=== PATIENT | female | born 1940 | race Caucasian/White ===

== ENCOUNTER 2023-11-01 09:58 | Inpatient (IN) ==
--- NOTE | 2023-11-01 10:29 | Emergency Department Note ---
Impression & Plan NSTEMI (non-ST elevated myocardial infarction), LBBB (left bundle branch block), Acute UTI (urinary tract infection), Hypokalemia ED Provider Note NAME: ELANA WU AGE: 83 SEX: F : 1940 ARRIVES VIA: Walk-In INFORMANT: Patient, the patient's family members ED PROVIDER(S): Russel Apple DO CHIEF COMPLAINT: Weakness HPI: The patient is an 83-year-old female who presented to the emergency department for an evaluation of generalized weakness. The patient has been having problems over the course the last week although the family ember states she has been not doing well over the course the last month. The patient denies having any abdominal pain or chest pain at this time. The patient denies having any fevers or coughing. She denies having any diarrhea. She has been having decreased p.o. intake. The patient is not been seen by the family doctor for the symptoms but came to the emergency department today for further evaluation. They have also been noticing that her blood pressure has been low and her blood sugars been high. ROS: See above HPI for pertinent positives & negatives. A total of 10 systems reviewed and were otherwise negative. PAST MEDICAL HISTORY: See Below PAST SURGICAL HISTORY: See Below FAMILY HISTORY: See Below SOCIAL HISTORY: See Below HOME MEDICATIONS: See Below ALLERGIES: See Below VITALS: See Below PHYSICAL EXAMINATION: GENERAL: Patient is awake alert in no acute distress patient is resting comfortably and showing no signs of anxiety EYES: The conjunctivae are clear. The pupils are round and reactive. EARS, NOSE, MOUTH AND THROAT: The nose is without any evidence of any deformity. Mucous membranes are dry. NECK: The neck is nontender and supple. RESPIRATORY: Normal respiratory effort is noted there is no evidence of wheezing rhonchi or rales CARDIOVASCULAR: Regular rate and rhythm noted there no murmurs rubs or gallops normal S1 normal S2. GASTROINTESTINAL: The abdomen is soft. Abdomen is nontender. MUSCULOSKELETAL/EXTREMITIES: There is no evidence of gross deformity full range of motion is noted in the hips and shoulders. SKIN: There is no obvious evidence of any rash. There are no petechiae, pallor or cyanosis noted. NEUROLOGIC: Patient is awake alert and oriented x3. Strength was diminished but symmetric. MEDICAL DECISION MAKING: The patient is an 83-year-old female who presented to the emergency department for an evaluation of multiple complaints. The patient presented with family members for being very tired. They thought the patient's blood pressure was low and her blood sugar was been high. She started having chest pain over the course the last week. The patient had no ongoing chest pain at this time. I discussed patient's laboratory and radiographic studies with her and her family members. She was found to have a new left bundle compared to her previous EKG that we had on file from 2016. She was also found to have an elevation in her troponin. I discussed her condition with the on-call [facility] hospitalist. I also discussed her condition with the [facility] side laster tack. The patient was started on heparin. She was treated with aspirin. Triage Nursing notes reviewed. Prior medical records reviewed Vital Signs: reviewed and remarkable for elevated blood pressure. Differential diagnosis: Infection, dehydration, metabolic abnormality, hypo/hyperglycemia, electrolyte disturbance, anemia, hypoxia, cardiac sources, intracerebral event, toxicologic, neurologic, as well as other pathologies. ER treatment provided: See below Diagnostics interpreted by me: ECG: EKG was obtained in the emergency department. My interpretation is normal sinus rhythm at 74 bpm. Left bundle branch block pattern was noted. There is no PVCs. This was compared to a tracing from October 02, 2015. The left bundle is new compared to previous tracing. Cardiac Monitoring: An order was placed for continuous cardiac monitoring. The monitor shows a rate of 71 bpm with sinus rhythm. Laboratory studies: As stated above and show below. Imaging studies: See below. Radiographic imaging was reviewed by myself Consultation(s): I discussed this case with Terri who is on-call for the [facility] hospitalist group. I discussed this case with Dr. Diggs who is on-call for the [facility]ist group. ED COURSE: Procedures: none Critical Care: I have personally spent greater than 40 minutes of critical care time in the direct management of this patient. This includes bedside care, interpretation of diagnostic studies, and testing, discussion with consultants, patient, and family members, and other required patient management activities. This 40 minutes is in excess of all separately billable procedures. Past Med/Surg History Medical History HLD (hyperlipidemia) HTN (hypertension) DM (diabetes mellitus), type 2 Chronic renal failure, stage 3 (moderate) Surgical History Hx of cataract surgery Total knee replacement status H/O: hysterectomy Family History Other Diabetes Social History Smoking Status: Never smoker Second Hand Exposure: No; Do You Dip or Chew Tobacco: No; Tobacco Cessation Education Requested by Patient: No Hx Alcohol Use: No Hx Substance Use: No Preferred Language: Cantonese Tongan Communication Ability: Effective [employer] V[employer] Inspector Required: No Beliefs That Will Affect Care: None Current Living Situation: Spouse Other Information That Helps Us Care for You: No Feels Safe at Home: Yes Safety Concerns: Feels Safe At This Time Assistive Devices: Cane Allergies Allergies Allergy/AdvReac Type Severity Reaction Status Date / Time Penicillins Allergy Severe RASH OVER Verified 11/01/23 12:47 ENTIRE BODY Home Meds Home Medications Medication Instructions Recorded Confirmed amlodipine 10 mg tablet 10 mg PO DAILY 11/01/23 11/01/23 atorvastatin 20 mg tablet 40 mg PO DAILY 11/01/23 11/01/23 calcitriol 0.25 mcg capsule 0.25 mcg PO Q OTHER DAY 11/01/23 11/01/23 calcium carbonate 600 mg calcium 600 mg PO DAILY 11/01/23 11/01/23 (1,500 mg) tablet (Calcium) cholecalciferol (vitamin D3) 50 50 mcg PO DAILY 11/01/23 11/01/23 mcg (2,000 unit) tablet (Vitamin D3) docusate sodium 100 mg capsule 100 mg PO DAILY 11/01/23 11/01/23 (Colace) glipizide 10 mg tablet, extended 10 mg PO DAILY 11/01/23 11/01/23 release 24 hr hydrochlorothiazide 12.5 mg capsule 12.5 mg PO DAILY 11/01/23 11/01/23 levothyroxine 50 mcg tablet 50 mcg PO DAILY 11/01/23 11/01/23 (Euthyrox) losartan 100 mg tablet 100 mg PO DAILY 11/01/23 11/01/23 potassium chloride 20 mEq 20 meq PO DAILY 11/01/23 11/01/23 tablet,extended release Results & Data (ED) Vital Signs Vital Signs - 24 hr 11/01/23 10:01 11/01/23 11:10 11/01/23 11:22 Temperature 35.9 C L Temperature Source Temporal Artery Scan Pulse Rate 88 80 74 Pulse Rate from SpO2 Sensor Respiratory Rate 16 20 17 Respiratory Effort / Characteristics Non-Labored Spontaneous Respiratory Depth Normal Blood Pressure 137/75 142/69 H 138/68 Blood Pressure Mean 95 93 91 Pulse Oximetry 97 98 98 Oxygen Delivery Method Room Air Room Air Room Air Sepsis Recent Fever Within 48 Hours No Sepsis New/Unexplained Change in Mental Status No Sepsis Action Taken by Nursing No Action Required 11/01/23 11:30 11/01/23 12:00 11/01/23 12:21 Temperature Temperature Source Pulse Rate 65 74 68 Pulse Rate from SpO2 Sensor 75 Respiratory Rate 19 16 Respiratory Effort / Characteristics Respiratory Depth Blood Pressure 137/68 164/85 H Blood Pressure Mean 91 111 Pulse Oximetry 98 97 Oxygen Delivery Method Room Air Room Air Sepsis Recent Fever Within 48 Hours Sepsis New/Unexplained Change in Mental Status Sepsis Action Taken by Alf Medications Current Medication List: was personally reviewed by me Laboratory Data Attestation: I reviewed the patient's lab results. 11/01/23 10:25 11/01/23 10:25 Lab Results 11/01/23 11/01/23 11/01/23 Range/Units 10:16 10:25 11:14 WBC 13.57 H (4.8-10.8) K/ul RBC 4.69 (4.20-5.40) M/uL Hgb 12.8 (12.0-16.0) g/dl Hct 38.9 (37.0-47.0) % MCV 82.9 (80.0-100.0) fL MCH 27.3 (25.0-34.0) pg MCHC 32.9 (32.0-36.0) g/dL RDW Std Deviation 43.4 (36.4-46.3) fL RDW Coeff of Maria Del Rosario 14.4 (11.5-14.5) % Plt Count 236 (130-400) K/uL MPV 12.7 H (9.4-12.4) fL Immature Gran % (Auto) 0.4 % Neut % (Auto) 75.5 % Lymph % (Auto) 14.0 % Norton % (Auto) 9.4 % Eos % (Auto) 0.4 % Baso % (Auto) 0.3 % Neut # (Auto) 10.25 H (1.40-6.50) K/uL Lymph # (Auto) 1.90 (1.20-3.40) K/uL Norton # (Auto) 1.27 H (0.11-0.59) K/uL Eos # (Auto) 0.06 (0.00-0.50) K/uL Baso # (Auto) 0.04 (0.00-0.20) K/uL Immature Gran # (Auto) 0.05 (0.01-0.20) K/uL PT 11.0 (9.0-12.0) Seconds INR 1.0 (0.9-1.1) APTT 27 (21-31) Seconds PTT Ratio 1.0 Sodium 134 L (136-145) mmol/L Potassium 3.0 L (3.5-5.1) mmol/L Chloride 98 (98-107) mmol/L Carbon Dioxide 27 (21-32) mmol/L Anion Gap 9 (3-11) BUN 31 H (6-23) mg/dl Creatinine 1.72 H (0.6-1.2) mg/dl Est Cr Clr Drug Dosing Not Reportable Est GFR ( Amer) 31.1 ml/min Est GFR (Non-Af Amer) 26.8 ml/min BUN/Creatinine Ratio 18.0 (10-20) Glucose 177 H (70-99(Fasting)) mg/dl POC Glucose 176 H (70-99) mg/dl Calcium 9.3 (8.6-10.3) mg/dl Magnesium 2.1 (1.7-2.4) mg/dl Total Bilirubin 1.1 H (0.2-1.0) mg/dl AST 34 (13-39) U/L ALT 16 (7-52) U/L Alkaline Phosphatase 49 (34-104) U/L Total Creatine Kinase 110 (26-192) U/L Troponin I High Sens 7459.0 H* (0-14) pg/ml Total Protein 6.7 (6.0-8.3) gm/dl Albumin 3.6 (3.4-5.0) gm/dl Globulin 3.1 (2.5-4.0) gm/dl Albumin/Globulin Ratio 1.2 (0.9-2) TSH 1.852 (0.300-4.500) uIu/ml Urine Color Urine Appearance (Clear) Urine pH (4.5-7.5) Ur Specific [place] (1.000-1.030) Urine Protein (Negative) Urine Glucose (UA) (Negative) Urine Ketones (Negative) Urine Blood (Negative) Urine Nitrite (Negative) Urine Bilirubin (Negative) Urine Urobilinogen (Negative) Ur Leukocyte Esterase (Negative) Urine WBC (Auto) (0-5) /hpf Urine RBC (Auto) (0-4) /hpf U Hyaline Cast (Auto) (0-5) /lpf U Epithel Cells (Auto) (0-5) /lpf Urine Bacteria (Auto) (Negative) SARS-CoV-2 (PCR) NEGATIVE (Negative) Influenza Type A (PCR) Negative (Neg) Influenza Type B (PCR) Negative (Neg) RSV (RT-PCR) Negative (Neg) 11/01/23 Range/Units 11:23 WBC (4.8-10.8) K/ul RBC (4.20-5.40) M/uL Hgb (12.0-16.0) g/dl Hct (37.0-47.0) % MCV (80.0-100.0) fL MCH (25.0-34.0) pg MCHC (32.0-36.0) g/dL RDW Std Deviation (36.4-46.3) fL RDW Coeff of Maria Del Rosario (11.5-14.5) % Plt Count (130-400) K/uL MPV (9.4-12.4) fL Immature Gran % (Auto) % Neut % (Auto) % Lymph % (Auto) % Norton % (Auto) % Eos % (Auto) % Baso % (Auto) % Neut # (Auto) (1.40-6.50) K/uL Lymph # (Auto) (1.20-3.40) K/uL Norton # (Auto) (0.11-0.59) K/uL Eos # (Auto) (0.00-0.50) K/uL Baso # (Auto) (0.00-0.20) K/uL Immature Gran # (Auto) (0.01-0.20) K/uL PT (9.0-12.0) Seconds INR (0.9-1.1) APTT (21-31) Seconds PTT Ratio Sodium (136-145) mmol/L Potassium (3.5-5.1) mmol/L Chloride (98-107) mmol/L Carbon Dioxide (21-32) mmol/L Anion Gap (3-11) BUN (6-23) mg/dl Creatinine (0.6-1.2) mg/dl Est Cr Clr Drug Dosing Est GFR ( Amer) ml/min Est GFR (Non-Af Amer) ml/min BUN/Creatinine Ratio (10-20) Glucose (70-99(Fasting)) mg/dl POC Glucose (70-99) mg/dl Calcium (8.6-10.3) mg/dl Magnesium (1.7-2.4) mg/dl Total Bilirubin (0.2-1.0) mg/dl AST (13-39) U/L ALT (7-52) U/L Alkaline Phosphatase (34-104) U/L Total Creatine Kinase (26-192) U/L Troponin I High Sens (0-14) pg/ml Total Protein (6.0-8.3) gm/dl Albumin (3.4-5.0) gm/dl Globulin (2.5-4.0) gm/dl Albumin/Globulin Ratio (0.9-2) TSH (0.300-4.500) uIu/ml Urine Color Yellow Urine Appearance Turbid A (Clear) Urine pH 5.5 (4.5-7.5) Ur Specific [place] 1.007 (1.000-1.030) Urine Protein Negative (Negative) Urine Glucose (UA) Negative (Negative) Urine Ketones Negative (Negative) Urine Blood Trace H (Negative) Urine Nitrite Positive A (Negative) Urine Bilirubin Negative (Negative) Urine Urobilinogen Negative (Negative) Ur Leukocyte Esterase 3+ H (Negative) Urine WBC (Auto) >30 H (0-5) /hpf Urine RBC (Auto) 0-4 (0-4) /hpf U Hyaline Cast (Auto) 1-5 (0-5) /lpf U Epithel Cells (Auto) >30 H (0-5) /lpf Urine Bacteria (Auto) 4+ H (Negative) SARS-CoV-2 (PCR) (Negative) Influenza Type A (PCR) (Neg) Influenza Type B (PCR) (Neg) RSV (RT-PCR) (Neg) Administered Medications Heparin Sodium/Dextrose (Heparin Sodium/Dextrose) 25,000 units in 500 mls @ 15 mls/hr IV .Q24H [facility]; Protocol Stop: 12/01/23 11:44 Last Admin: 11/01/23 11:58 Dose: 750 units/hr, 15 mls/hr Documented By: SANTHOSH Co-signed By: ALVARADO Discontinued Medications Aspirin (Aspirin Chew 324 Mg) 324 mg PO NOW STA Stop: 11/01/23 11:41 Last Admin: 11/01/23 11:55 Dose: 324 mg Documented By: SANTHOSH Fentanyl Citrate (Fentanyl Citrate Pf 100 Mcg/2 Ml Vial) Confirm Administered Dose 100 mcg .ROUTE .STK-MED ONE Stop: 11/01/23 15:22 Last Increment: 11/01/23 16:22 Dose: 25 mcg Documented By: MICHEAL Heparin Sodium (Porcine) (Heparin Sod (Porcine) 1000 Unit/Ml) 4,000 units IV NOW ONE Stop: 11/01/23 12:01 Last Admin: 11/01/23 11:58 Dose: 4,000 units Documented By: SANTHOSH Co-signed By: ALVARADO Heparin Sodium (Porcine) (Heparin (Porcine) 1000 Unit/Ml 10 Ml ([facility] Liaison Use Only)) Confirm Administered Dose 10,000 units .ROUTE .STK-MED ONE Stop: 11/01/23 15:22 Last Admin: 11/01/23 16:22 Dose: Not Given Documented By: MICHEAL Heparin Sodium/Sodium Chloride (Heparin In Nss Infusion 1000 Unit/500 Ml (2 U/Ml) Bag) Confirm Administered Dose 3,000 units IV .STK-MED ONE Stop: 11/01/23 15:22 Last Admin: 11/01/23 16:22 Dose: 3,000 units Documented By: MARGE Potassium Chloride (K Nick / Wtr) 10 meq in 100 mls @ 100 mls/hr IV ONE ONE Stop: 11/01/23 12:27 Last Infusion: 11/01/23 13:19 Dose: Infused Documented By: Admin: 11/01/23 11:56 Dose: 100 mls/hr Documented By: SANTHOSH Ceftriaxone Sodium 2,000 mg/ (Dextrose) 50 mls @ 100 mls/hr IV NOW STA; Protocol Stop: 11/01/23 13:00 Last Infusion: 11/01/23 13:38 Dose: Infused Documented By: Admin: 11/01/23 13:05 Dose: 100 mls/hr Documented By: ALVARADO Midazolam HCl (Midazolam Hcl 1 Mg/Ml 2ml Vial) Confirm Administered Dose 2 mg .ROUTE .STK-MED ONE Stop: 11/01/23 15:22 Last Increment: 11/01/23 16:22 Dose: 1 mg Documented By: MICHEAL Nicardipine HCl (Nicardipine Hcl Inj 2.5 Mg/Ml 10 Ml Amp) Confirm Administered Dose 25 mg .ROUTE .STK-MED ONE Stop: 11/01/23 15:22 Last Admin: 11/01/23 16:23 Dose: 0.1 mg Documented By: MARGE Nitroglycerin/Dextrose (Nitroglycerin/D5w 100mcg/Ml 20ml Syr) Confirm Administered Dose 2,000 mcg .ROUTE .STK-MED ONE Stop: 11/01/23 15:24 Last Admin: 11/01/23 16:23 Dose: 100 mcg Documented By: MARGE Potassium Chloride (Potassium Chloride Crtab 20 Meq Tabcr) 20 meq PO NOW STA Stop: 11/01/23 11:29 Last Admin: 11/01/23 11:56 Dose: 20 meq Documented By: SANTHOSH Imaging Data Attestation: I personally reviewed and interpreted this imaging study as follows: My Impression: 1 view chest x-ray was obtained in the emergency department. My interpretation is no free air or definite infiltrate, final report below. CT of the brain was obtained in the emergency department. My interpretation is no intracranial hemorrhage or mass effect, final report below Radiologist's Impression: Chest X-Ray 11/01/23 10:31 XR chest 1V portable HISTORY: weakness COMPARISON: Chest 10/02/2015. FINDINGS: No pneumothorax. No pleural effusions. The cardiac silhouette and mainstem normal in size. Calcifications again noted within the thoracic aorta. The lungs are clear. No evidence for pulmonary edema. No acute fractures identified. IMPRESSION: No acute process. ACT 112: Negative or not required by law. Electronically signed by: Juan M Gillis M.D. 11/01/2023 10:[address] 11/01/23 10:31 CT head/brain wo con CLINICAL HISTORY: ams Technique: Contiguous axial CT images of the head were acquired from the base of the skull to the vertex without intravenous contrast administration. Images were viewed in brain, subdural and bone windows. Automated dose lowering techniques and/or adjustment according to patient size were utilized for this exam. Comparison: None available at the time of this dictation. Findings: Areas of decreased attenuation are present in the periventricular and subcortical white matter bilaterally consistent with small vessel ischemic disease. Generalized cerebral atrophy with commensurate enlargement of the ventricles, sulci, and cisterns is also present. There is no acute intracranial hemorrhage or evidence of acute territorial infarction. No shift of the midline structures, mass effect, or extra-axial abnormalities are shown. Atherosclerotic calcifications are present in the intracranial segments of the internal carotid arteries. Imaged portions of the paranasal sinuses and mastoid air cells are clear. The orbits appear normal. There are no acute fractures of the calvaria or scalp swelling. Impression: No acute intracranial hemorrhage, no evidence of acute territorial infarction or other acute intracranial disease process. ACT 112: Negative or not required by law. Electronically signed by: Bebo Mccann M.D. 11/01/2023 11:16 AM Discharge Plan Visit Data Chief Complaint: Hypotension Stated Complaint: LOW BLOOD PRESSURE/SUGAR HIGH - DIABETIC ED Provider: Russel Apple Discharge Problem: NSTEMI (non-ST elevated myocardial infarction), LBBB (left bundle branch block), Acute UTI (urinary tract infection), Hypokalemia Patient Disposition: Admitted As Inpatient Discharge Instructions Interventions: ED Discharge Assessment Last Done: 11/01/23 13:57
--- NOTE | 2023-11-01 10:48 | XRay Report ---
XR chest 1V portable HISTORY: weakness COMPARISON: Chest 10/02/2015. FINDINGS: No pneumothorax. No pleural effusions. The cardiac silhouette and mainstem normal in size. Calcifications again noted within the thoracic aorta. The lungs are clear. No evidence for pulmonary edema. No acute fractures identified. IMPRESSION: No acute process. ACT 112: Negative or not required by law. Electronically signed by: Juan M Gillis M.D. 11/01/2023 10:47 AM
[2023-11-01 10:57] LABS: Basophils # (auto) 0.04 K/uL (0.00-0.20); Basophils % (auto) 0.3 %; Eosinophils # (auto) 0.06 K/uL (0.00-0.50); Eosinophils % (auto) 0.4 %; Hematocrit (blood only) 38.9 % (37.0-47.0); Hemoglobin 12.8 g/dl (12.0-16.0); Immature Granulocytes # (auto) 0.05 K/uL (0.01-0.20); Immature Granulocytes % (auto) 0.4 %; Mean Corpuscular Hemoglobin 27.3 pg (25.0-34.0); Mean Corpuscular Hgb Conc 32.9 g/dL (32.0-36.0); Mean Corpuscular Volume 82.9 fL (80.0-100.0); Mean Platelet Volume 12.7 fL (9.4-12.4); Monocytes # (auto) 1.27 K/uL (0.11-0.59); Monocytes % (auto) 9.4 %; Neutrophils # (auto) 10.25 K/uL (1.40-6.50); Neutrophils % (auto) 75.5 %; Platelet Count 236 K/uL (130-400); RDW Coefficient of Variation 14.4 % (11.5-14.5); RDW Standard Deviation 43.4 fL (36.4-46.3); Red Blood Count 4.69 M/uL (4.20-5.40); White Blood Count 13.57 K/ul (4.8-10.8)
[2023-11-01 11:13] LABS: Alanine Aminotransferase 16 U/L (7-52); Albumin Globulin Ratio 1.2 (0.9-2); Albumin Level 3.6 gm/dl (3.4-5.0); Alkaline Phosphatase 49 U/L (34-104); Anion Gap 9 (3-11); Aspartate Aminotransferase 34 U/L (13-39); Bilirubin,Total 1.1 mg/dl (0.2-1.0); Blood Urea Nitrogen 31 mg/dl (6-23); Calcium 9.3 mg/dl (8.6-10.3); Carbon Dioxide 27 mmol/L (21-32); Chloride 98 mmol/L (98-107); Creatine Kinase 110 U/L (26-192); Est GFR (African American) 31.1 ml/min; Est GFR (Non-African American) 26.8 ml/min; Globulin 3.1 gm/dl (2.5-4.0); Glucose 177 mg/dl (70-99(Fasting)); Magnesium 2.1 mg/dl (1.7-2.4); Sodium 134 mmol/L (136-145); Total Protein 6.7 gm/dl (6.0-8.3)
--- NOTE | 2023-11-01 11:17 | CT Scan Report ---
CT head/brain wo con CLINICAL HISTORY: ams Technique: Contiguous axial CT images of the head were acquired from the base of the skull to the romero miranda without intravenous contrast administration. Images were viewed in brain, subdural and bone [facility]. Automated dose lowering techniques and/or adjustment according to patient size were utilized for this exam. Comparison: None available at the time of this dictation. Findings: Areas of decreased attenuation are present in the periventricular and subcortical white matter bilate rally consistent with small vessel ischemic disease. Generalized cerebral atrophy with commensurate e nlargement of the ventricles, sulci, and cisterns is also present. There is no acute intracranial hem orrhage or evidence of acute territorial infarction. No shift of the midline structures, mass effect, or extra-axial abnormalities are shown. Atherosclerotic calcifications are present in the intracran ial segments of the internal carotid arteries. Imaged portions of the paranasal sinuses and mastoid air cells are clear. The orbits appear normal. There are no acute fractures of the calvaria or scalp swelling. Impression: No acute intracranial hemorrhage, no evidence of acute territorial infarction or other acute intracra nial disease process. ACT 112: Negative or not required by law. Electronically signed by: Bebo Mccann M.D. 11/01/2023 11:16 AM
[2023-11-01 11:28] LABS: Thyroid Stimulating Hormone 1.852 uIu/ml (0.300-4.500)
[2023-11-01 11:29] LABS: Partial Thromboplastin Time 27 Seconds (21-31)
[2023-11-01] MEDS ORDERED: Heparin IV Adult Wt-Based Low-Dose w/ INITIAL Bolus Protocol IV STA (11:30)
[2023-11-01] MEDS ORDERED: Patient's HEIGHT &/or WEIGHT Needed STA (11:31)
[2023-11-01] MEDS ORDERED: HEPARIN SOD (PORCINE) 1000 UNIT/ML IV ONE (11:45)
[2023-11-01 11:48] LABS: Appearance Urine Turbid (Clear); Bacteria Urine Automated 4+ (Negative); Bilirubin Urine Negative (Negative); Blood Urine Trace (Negative); Color Urine Yellow; Epithelial Cell Urine Auto >30 /lpf (0-5); Glucose Urine UA Negative (Negative); Ketones Urine Negative (Negative); Leukocyte Esterase Urine 3+ (Negative); Nitrite Urine Positive (Negative); Protein Urine Negative (Negative); RBC Urine Automated 0-4 /hpf (0-4); Specific Gravity Urine 1.007 (1.000-1.030); Urobilinogen Urine Negative (Negative); WBC Urine Automated >30 /hpf (0-5); pH Urine 5.5 (4.5-7.5)
[2023-11-01] MEDS: ASPIRIN CHEW 324 MG PO STA (11:55)
[2023-11-01] MEDS: POTASSIUM CHLORIDE / WTR 10 MEQ/100 ML PLCT IV ONE (11:56)
[2023-11-01] MEDS: POTASSIUM CHLORIDE CRTAB 20 MEQ TABCR PO STA (11:56)
--- NOTE | 2023-11-01 11:56 | Electrocardiogram Report ---
Test Reason : Blood Pressure : / mmHG Vent. Rate : 074 BPM Atrial Rate : 074 BPM P-R Int : 150 ms QRS Dur : 164 ms QT Int : 408 ms P-R-T Axes : -14 -30 121 degrees QTc Int : 452 ms Normal sinus rhythm Left axis deviation Left bundle branch block Abnormal ECG When compared with ECG of 02-OCT-2015 08:45, Left bundle branch block is now Present Confirmed by Russel Virk ([id number]) on 11/01/2023 11:56:25 AM Referred By: Confirmed By:Russel Virk
[2023-11-01] MEDS: HEPARIN SODIUM/DEXTROSE 25,000 UNITS/500 ML BAG IV SCH (11:58)
[2023-11-01] MEDS: HEPARIN SOD (PORCINE) 1000 UNIT/ML IV ONE ×2 (11:58→19:44)
[2023-11-01 12:16] LABS: Influenza A virus by PCR Negative (Neg); Influenza B virus by PCR Negative (Neg); RSV by PCR Negative (Neg); SARS CoV2 RNA(COVID-19) Ceph NEGATIVE (Negative)
--- NOTE | 2023-11-01 12:25 | History & Physical Report ---
Date of Service November 01, 2023 Assessment & Plan (1) LBBB (left bundle branch block): (2) NSTEMI (non-ST elevated myocardial infarction): (3) Generalized weakness: (4) HTN (hypertension): (5) DM (diabetes mellitus), type 2: (6) Chronic renal failure, stage 3 (moderate): (7) HLD (hyperlipidemia): Plan This is an 83-year-old female with PMH of HTN, DM II, CKD III, HLD and other medical problems listed below who presents with generalized weakness and unintentional weight loss over the past month and was found to have NSTEMI. LBBB NSTEMI Presenting with hypotension and generalized weakness x 1 mo, had R sided chest pain with walking on Sunday, has not recurred No known h/o CAD EKG reviewed - NSS, LAD, LBBB (new since 2015) HS troponin 7,459 -> 10,486 Started in IV heparin Discussed with Dr. Diggs who ordered stat echo, will evaluate Keep NPO for now, monitor on tele, trend troponin, repeat EKG in AM Acute uncomplicated UTI Endorses generalized weakness and decreased appetite but no urinary symptoms UA grossly abnormal, starting empiric Rocephin Allergy to PCN (reaction - rash) noted, discussed with pharmacy and due to low risk for cross-reactivity and SCOTTY limiting abx options, will continue Rocephin for now Monitor closely HTN Has been hypotensive lately, held her amlodipine and losartan for the past few days DM II A1c unknown - add to labs Hold home agents SSI while in-patient BSG AC HS CKD III Cr 1.72 (baseline unknown; will request outside records). 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 Castro. Please see addendum. I spent a total of 75 minutes coordinating, documenting, and providing care for this patient excluding time spent in the performance of separately billed services. History of Present Illness Chief Complaint: Generalized weakness, poor appetite Primary Care Provider: Zeke Franklin This is an 83-year-old female with PMH of HTN, DM II, CKD III, HLD and other medical problems listed below who presents with generalized weakness and unintentional weight loss over the past month. at bedside states that patient has lost approximately 25 pounds over the past month and is just generally not hungry. Patient is a poor historian so majority of history was obtained by family at bedside. Was seen by Dr. Franklin's PA-C 2 weeks ago and blood pressure had been elevated, so losartan dose was increased to 100 mg. Took for the first time this past Sunday before going to shinto. States she developed right-sided chest pain when walking out of the shinto that was nonradiating and resolved within the hour when she was able to rest at home. Chest pain has not recurred since then. Over the past few days, has noted her systolic blood pressure to be lower in the 1 teens, and has been holding blood pressure medications. This morning, patient is unclear whether or not she took her meds but her systolic blood pressure was in the 80s and brought her in for further evaluation. Over the past 2 weeks in particular, patient has felt generally weak with decreased appetite. Had a fall earlier today ambulating back from the restroom but denies losing consciousness or head trauma, landed on her backside. Denies any personal known history of CAD or cardiac catheterization. Thinks it has been years since she had an EKG. Does not follow with a flight software test engineer. Remembers being told years ago that she has " aneurysms" but is not sure where they are located and we cannot view her outside records at this time. Patient is a non-smoker. No family history of heart disease. Denies any fever, chills, lightness, visual changes, chest pain, palpitations, shortness of breath, nausea, vomiting, abdominal pain, dysuria, diarrhea or constipation. Allergies Allergy/AdvReac Type Severity Reaction Status Date / Time Penicillins Allergy Severe RASH OVER Verified 11/01/23 12:47 ENTIRE BODY Home Medications Medication Instructions Recorded Confirmed Type amlodipine 10 mg tablet 10 mg PO DAILY 11/01/23 11/01/23 History atorvastatin 20 mg tablet 40 mg PO DAILY 11/01/23 11/01/23 History calcitriol 0.25 mcg capsule 0.25 mcg PO Q OTHER DAY 11/01/23 11/01/23 History calcium carbonate 600 mg calcium 600 mg PO DAILY 11/01/23 11/01/23 History (1,500 mg) tablet (Calcium) cholecalciferol (vitamin D3) 50 50 mcg PO DAILY 11/01/23 11/01/23 History mcg (2,000 unit) tablet (Vitamin D3) docusate sodium 100 mg capsule 100 mg PO DAILY 11/01/23 11/01/23 History (Colace) glipizide 10 mg tablet, extended 10 mg PO DAILY 11/01/23 11/01/23 History release 24 hr hydrochlorothiazide 12.5 mg capsule 12.5 mg PO DAILY 11/01/23 11/01/23 History levothyroxine 50 mcg tablet 50 mcg PO DAILY 11/01/23 11/01/23 History (Euthyrox) losartan 100 mg tablet 100 mg PO DAILY 11/01/23 11/01/23 History potassium chloride 20 mEq 20 meq PO DAILY 11/01/23 11/01/23 History tablet,extended release Past Med/Surg History Medical History HLD (hyperlipidemia) HTN (hypertension) DM (diabetes mellitus), type 2 Chronic renal failure, stage 3 (moderate) Surgical History Hx of cataract surgery Total knee replacement status H/O: hysterectomy Family History Other Diabetes Social History Smoking Status: Never smoker Second Hand Exposure: No; Do You Dip or Chew Tobacco: No; Tobacco Cessation Education Requested by Patient: No Hx Alcohol Use: No Hx Substance Use: No Preferred Language: Cantonese Icelandic Communication Ability: Effective Edge Bander Operator Required: No Beliefs That Will Affect Care: None Current Living Situation: Spouse Other Information That Helps Us Care for You: No Feels Safe at Home: Yes Safety Concerns: Feels Safe At This Time Assistive Devices: Cane Review of Systems Review of Systems: At least ten systems reviewed and negative except as noted in the HPI. Physical Exam Physical Exam: General Appearance: WD/WN, vitals as above, NAD, sitting up in bed Head: normocephalic, atraumatic Eyes: normal inspection, PERRL, conjunctivae normal, anicteric sclerae ENT: external ear and nose normal, oropharynx normal Neck: normal visual inspection, trachea midline, no thyromegaly Respiratory: normal respiratory effort, lungs clear to auscultation, no wheeze, rales, rhonchi. No accessory muscle use Cardiovascular: regular rate, rhythm, no murmur, normal peripheral pulses, no BLE edema. Vessels: no JVD Chest: normal inspection of chest Abdomen/GI: normal bowel sounds, soft, nontender, no hepatosplenomegaly Extremities/Musculoskeletal: no cyanosis or clubbing, extremities motor strength 5/5 Neurologic: PERRL, EOMI, accommodation nl, no face palsy, no dysarthria, CN's II-XI intact bilaterally and moves all extremities Psychiatric: A+Ox3, euthymic affect Skin: no rashes, normal color, warm/dry Results & Data Results & Data Vital Signs (Past 12 Hours) Vital Signs Temp Pulse Resp BP Pulse Ox O2 Del Method 11/01/23 10:01 35.9 C L 88 16 137/75 97 Room Air Laboratory Results Short CBC 11/01/23 Range/Units 10:25 WBC 13.57 H (4.8-10.8) K/ul Hgb 12.8 (12.0-16.0) g/dl Hct 38.9 (37.0-47.0) % Plt Count 236 (130-400) K/uL BMP 11/01/23 10:25 Sodium 134 L Potassium 3.0 L Chloride 98 Carbon Dioxide 27 BUN 31 H Creatinine 1.72 H Glucose 177 H Calcium 9.3 Cardiac Enzymes 11/01/23 Range/Units 10:25 Total Creatine Kinase 110 (26-192) U/L Liver Function 11/01/23 Range/Units 10:25 Total Bilirubin 1.1 H (0.2-1.0) mg/dl AST 34 (13-39) U/L ALT 16 (7-52) U/L Alkaline Phosphatase 49 (34-104) U/L Albumin 3.6 (3.4-5.0) gm/dl Urine 11/01/23 Range/Units 11:23 Urine Color Yellow Urine Appearance Turbid A (Clear) Urine pH 5.5 (4.5-7.5) Ur Specific Gilbert 1.007 (1.000-1.030) Urine Protein Negative (Negative) Urine Glucose (UA) Negative (Negative) Diagnostic Findings Chest X-Ray 11/01/23 10:31 XR chest 1V portable HISTORY: weakness COMPARISON: Chest 10/02/2015. FINDINGS: No pneumothorax. No pleural effusions. The cardiac silhouette and mainstem normal in size. Calcifications again noted within the thoracic aorta. The lungs are clear. No evidence for pulmonary edema. No acute fractures identified. IMPRESSION: No acute process. ACT 112: Negative or not required by law. Electronically signed by: Juan M Gillis M.D. 11/01/2023 10:[address] 11/01/23 10:31 CT head/brain wo con CLINICAL HISTORY: ams Technique: Contiguous axial CT images of the head were acquired from the base of the skull to the vertex without intravenous contrast administration. Images were viewed in brain, subdural and bone windows. Automated dose lowering techniques and/or adjustment according to patient size were utilized for this exam. Comparison: None available at the time of this dictation. Findings: Areas of decreased attenuation are present in the periventricular and subcortical white matter bilaterally consistent with small vessel ischemic disease. Generalized cerebral atrophy with commensurate enlargement of the ventricles, sulci, and cisterns is also present. There is no acute intracranial hemorrhage or evidence of acute territorial infarction. No shift of the midline structures, mass effect, or extra-axial abnormalities are shown. Atherosclerotic calcifications are present in the intracranial segments of the internal carotid arteries. Imaged portions of the paranasal sinuses and mastoid air cells are clear. The orbits appear normal. There are no acute fractures of the calvaria or scalp swelling. Impression: No acute intracranial hemorrhage, no evidence of acute territorial infarction or other acute intracranial disease process. ACT 112: Negative or not required by law. Electronically signed by: Bebo Mccann M.D. 11/01/2023 11:16 AM ECG Additional Comments: EKG reviewed: NSR, LAD, LBBB new from 2016 EKG on file. Supervising Physician Co-Signing Physician Notes Pt seen and examined by myself, Cherelle Castro MD on the day of service. Care was coordinated with Terri Goldberg PA-C. Pt is an 83yoF with PMHx significant for DMII, HTN, HLD, CKD, hypothyroidism presenting with generalized weakness. WBC 13.57K, Na 134, K 3.0, Cr 1.72 Glucose 177, t bili 1.1, hs-trop of 7459 UA +nitrites, Urine Cx pending Blood Cx x2 pending Head CT with no acute abnormalities Chest XRAY with no acute process EKG with LBBB Echo with EF 30-35%, LVH, abnormal septal motion with noted hypokinesis of LV Temp of 35.9 on arrival AAOx1, RRR, breath sounds clear bilaterally, abdomen diffusely tender, no edema noted in lower extremities Possible sepsis- WBC elevated at 13K, temp <36 on arrival with infectious urine source, AMS. Lactate and blood Cx x2 pending. NSTEMI- IV heparin, Cardiology consult, trend trop to peak. Appreciate cardiology recs for cath. UTI-Cont with broad abx, narrow based on culture Acute metabolic encephalopathy- likely in setting of UTI, head CT reviewed. Treat UTI as above, of persists consider brain MRI SCOTTY- will hold fluids at this time given echo results, consider very limited gentle hydration Hypokalemia- replete as needed DMII- ISS per protocol Otherwise as above.
[2023-11-01] MEDS: cefTRIAXone SODIUM 2,000 MG in DEXTROSE 5 % MINI-B 50 ML IV STA (13:05)
[2023-11-01] MEDS ORDERED: POLYETHYLENE (MIRALAX) 17 GM PACK PO PRN (14:34)
[2023-11-01] MEDS ORDERED: ONDANSETRON INJ 2 MG/ML 2 ML VIAL IV PRN (14:34)
--- NOTE | 2023-11-01 14:46 | Cardiology Consultation ---
Date of Consultation November 01, 2023 Assessment & Plan (1) NSTEMI (non-ST elevated myocardial infarction): (2) LBBB (left bundle branch block): (3) HTN (hypertension): (4) HLD (hyperlipidemia): Plan 73-year-old female with a past medical history of stage IV chronic kidney di sease, hypertension, dyslipidemia, and type 2 diabetes mellitus presents with a month of progressive generalized weakness, worse over the last week. She has not followed with cardiology in the past. She follows with Dr. Tristan of nephrology in [facility] . I called his office and her most recent measurement of GFR at the time of blood work performed 08/11/2023 was 28 mL/min/m, relatively unchanged compared to the 31 mL/min/m noted at the time of presentation to our institution today. She has an apparent history of an abdominal aortic aneurysm and had an MRA performed in May, and the report is going to be faxed over for review. The patient has been found to have an elevated high-sensitivity troponin level of 7459 on presentation and 10,486 upon repeat. EKG reveals the presence of a left bundle branch block which is new compared to 2016, but the acuity versus chronicity of this is unknown. She does not have any symptoms to suggest angina at the present time. An echocardiogram was performed today that reveals mild concentric left ventricular hypertrophy with focal hypertrophy of the basal septum, the septal motion is abnormal consistent with left bundle branch block with diffuse left ventricular hypokinesis at the mid and apical levels and relative sparing of the basal levels. Left ventricular ejection fraction is moderately reduced, LVEF in the range of 30-35%. Mild aortic regurgitation present, grade 1 diastolic dysfunction. A small loculated anterior pericardial effusion is present without tamponade. The patient's wall motion abnormalities are suggestive of possible left bundle branch block related cardiomyopathy versus ischemic cardiomyopathy or a stress- induced cardiomyopathy. Given her risk factors, invasive coronary artery therapy recommended for further evaluation. As noted, patient has baseline kidney disease, but her GFR is stable. Case discussed with Dr. Oneil of interventional cardiology, and we will proceed with invasive coronary angiography today. Patient/family agreeable. Medication therapy: Patient received 324 mg of aspirin already in the emergency room, will continue with aspirin 81 mg daily. Prior to hospital treatment with losartan, amlodipine, HCTZ remain on hold at present. Start low-dose metoprolol succinate 12.5 mg daily. Increase atorvastatin from 40 mg to 80 mg. Further recommendations regarding medication therapy to be pursued after cardiac catheterization data available. History of Present Illness Attending Physician: Cherelle Castro MD History of Present Illness Elma Black is an 83 year old female seen in cardiology consultation per the request of Terri Goldberg PA-C for the evaluation of abnormal EKG and elevation in the high-sensitivity troponin. The patient was in room 461-2 at the time of my assessment. She was accompanied by her , Sam, son, Sam, and granddaughter Geri. Patient endorses symptoms of generalized ill feeling and tiredness over the last month and worse over the last week. She denies any specific chest pain or shortness of breath symptoms. No syncope or definite near syncope. Her endorses that she has not been herself for about a month. Patient reportedly had chest pain 4 days ago when walking out of sikh without recurrence. Patient has not followed with cardiology in the past. There are no past cardiac testing within her [facility] record. An EKG had previously been performed at this institution in 2016. Patient denies any recent viral symptoms. 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 Her past medical history is notable for hypertension and dyslipidemia. Losartan was apparently recently initiated, and this was followed with low blood pressure with systolic readings in the 80s several times per her . She has an apparent history of what sounds like an abdominal aortic aneurysm which has been followed by her kier operator. Allergies Allergy/AdvReac Type Severity Reaction Status Date / Time Penicillins Allergy Severe RASH OVER Verified 11/01/23 12:47 ENTIRE BODY Home Medications Medication Instructions Recorded Confirmed Type amlodipine 10 mg tablet 10 mg PO DAILY 11/01/23 11/01/23 History atorvastatin 20 mg tablet 40 mg PO DAILY 11/01/23 11/01/23 History calcitriol 0.25 mcg capsule 0.25 mcg PO Q OTHER DAY 11/01/23 11/01/23 History calcium carbonate 600 mg calcium 600 mg PO DAILY 11/01/23 11/01/23 History (1,500 mg) tablet (Calcium) cholecalciferol (vitamin D3) 50 50 mcg PO DAILY 11/01/23 11/01/23 History mcg (2,000 unit) tablet (Vitamin D3) docusate sodium 100 mg capsule 100 mg PO DAILY 11/01/23 11/01/23 History (Colace) glipizide 10 mg tablet, extended 10 mg PO DAILY 11/01/23 11/01/23 History release 24 hr hydrochlorothiazide 12.5 mg capsule 12.5 mg PO DAILY 11/01/23 11/01/23 History levothyroxine 50 mcg tablet 50 mcg PO DAILY 11/01/23 11/01/23 History (Euthyrox) losartan 100 mg tablet 100 mg PO DAILY 11/01/23 11/01/23 History potassium chloride 20 mEq 20 meq PO DAILY 11/01/23 11/01/23 History tablet,extended release Patient History Medical History HLD (hyperlipidemia) HTN (hypertension) DM (diabetes mellitus), type 2 Chronic renal failure, stage 3 (moderate) Surgical History Hx of cataract surgery Total knee replacement status H/O: hysterectomy Family History Other Diabetes Social History Smoking Status: Never smoker Hx Alcohol Use: No Hx Substance Use: No Feels Safe at Home: Yes Review of Systems Review of Systems: All systems reviewed & are unremarkable except as noted in HPI & below Physical Exam Constitutional: WD/WN, vitals as above Respiratory: normal respiratory effort, lungs clear to auscultation Cardiovascular: RRR, no murmur, no edema Vessels: no JVD Gastrointestinal (Abdomen): normal bowel sounds, soft, nontender, no hepatosplenomegaly Neurologic: PERRL, EOMI, accommodation nl, no face palsy, no dysarthria Results & Data Vital Signs (Past 12 Hours) Vital Signs Temp Pulse Resp BP Pulse Ox O2 Del Method 11/01/23 13:10 69 17 148/87 H 97 Room Air 11/01/23 12:21 68 11/01/23 12:00 74 16 164/85 H 97 Room Air 11/01/23 11:30 65 19 137/68 98 Room Air 11/01/23 11:22 74 17 138/68 98 Room Air 11/01/23 11:10 80 20 142/69 H 98 Room Air 11/01/23 10:01 35.9 C L 88 16 137/75 97 Room Air Laboratory Results Cardiac Enzymes 11/01/23 11/01/23 Range/Units 10:25 12:37 AST 34 (13-39) U/L Troponin I High Sens 7459.0 H* 22172.7 H* D (0-14) pg/ml Coagulation 11/01/23 Range/Units 10:25 PT 11.0 (9.0-12.0) Seconds APTT 27 (21-31) Seconds CBC 11/01/23 Range/Units 10:25 WBC 13.57 H (4.8-10.8) K/ul RBC 4.69 (4.20-5.40) M/uL Hgb 12.8 (12.0-16.0) g/dl Hct 38.9 (37.0-47.0) % Plt Count 236 (130-400) K/uL Neut # (Auto) 10.25 H (1.40-6.50) K/uL Lymph # (Auto) 1.90 (1.20-3.40) K/uL Mchenry # (Auto) 1.27 H (0.11-0.59) K/uL Eos # (Auto) 0.06 (0.00-0.50) K/uL Baso # (Auto) 0.04 (0.00-0.20) K/uL Comprehensive Metabolic Panel 11/01/23 Range/Units 10:25 Sodium 134 L (136-145) mmol/L Potassium 3.0 L (3.5-5.1) mmol/L Chloride 98 (98-107) mmol/L Carbon Dioxide 27 (21-32) mmol/L BUN 31 H (6-23) mg/dl Creatinine 1.72 H (0.6-1.2) mg/dl Glucose 177 H (70-99(Fasting)) mg/dl Calcium 9.3 (8.6-10.3) mg/dl AST 34 (13-39) U/L ALT 16 (7-52) U/L Alkaline Phosphatase 49 (34-104) U/L Total Protein 6.7 (6.0-8.3) gm/dl Albumin 3.6 (3.4-5.0) gm/dl Diagnostic Findings EKG performed 11/01/2023 at 10:32 AM revealed sinus rhythm at 74 bpm with left bundle branch block and resultant repolarization abnormalities. Compared to the previous tracing dating back to 2016 the left bundle branch block is new.
[2023-11-01] MEDS ORDERED: GLUCOSE 10 TAB/TUBE PO PRN (15:03)
[2023-11-01] MEDS ORDERED: CARBOHYDRATES FOR HYPOGLYCEMIA PO PRN (15:03)
[2023-11-01] MEDS ORDERED: PHARMACY GLYCEMIC MGMT CONSULT PRN (15:03)
[2023-11-01] MEDS ORDERED: GLUCAGON FOR INJ 1 MG VIAL SQ PRN (15:03)
[2023-11-01] MEDS ORDERED: GLUCOSE 40% GEL 15 GM TUBE PO PRN (15:03)
[2023-11-01] MEDS ORDERED: DEXTROSE 50% 50 ML SYRINGE IV PRN (15:03)
--- NOTE | 2023-11-01 15:52 | Post Anesthesia Assessment ---
Date of Service November 01, 2023 Post Sedation Assessment Vital Signs Temp Pulse Pulse Resp BP BP Pulse Ox 11/01/23 15:40 98.4 F 71 16 148/76 H 96 11/01/23 13:10 69 17 148/87 H 97 11/01/23 12:21 68 11/01/23 12:00 74 16 164/85 H 97 11/01/23 11:30 65 19 137/68 98 11/01/23 11:22 74 17 138/68 98 11/01/23 11:10 80 20 142/69 H 98 11/01/23 10:01 96.6 F L 88 16 137/75 97 O2 Del Method 11/01/23 15:40 Room Air 11/01/23 13:10 Room Air 11/01/23 12:21 11/01/23 12:00 Room Air 11/01/23 11:30 Room Air 11/01/23 11:22 Room Air 11/01/23 11:10 Room Air 11/01/23 10:01 Room Air Recovery Score Activity: Moves 4 extremities Respiration: Deep Breath/Cough Circulation: +/-20% PreAnes Value Consciousness: Fully Awake Oxygen Saturation: O2 needed for >90% Discharge Sedation Level of Care: Fast Track Phase II Post Sedation Plan On clinical assessment, the patient appears to have tolerated the sedation without complications. Patient is recovering as anticipated. Patient will continue to be monitored by nursing and may be discharged when sedation discharge criteria are met per below protocol. Upon Completions of procedure up to 15 minutes continue every 5 minute vital signs and the P.A.R. score; then discharge to a Phase I or Fast Track to Phase II per the following guidelines: * Discharge Patient to appropriate Phase II area if PAR is 8 or greater or return to pre- procedure baseline. The post - procedure orders will be as directed. * If PAR score is less than 8 or not return to pre-procedure baseline then patient will follow Phase I monitoring till PAR is reached for Phase II. The Phase I may be done in procedure room or may call to secure a Phase I area. * If naloxone or flumazenil are used for reversal, hold in Phase I for continued monitoring from when last reversal dose was given for a minimum of 60 minutes or longer pending the nurse and/or physician discretion of patient condition before discharge to Phase II. Please call the Sedation Physician to re-evaluate and complete post-note for discharge to Phase II area. Do NOT discharge from procedure sedation or Phase 1 until post- sedation evaluation note is complete by procedure /sedation MD Sedation Discharge Instructions to be given to the patient at discharge to home.
[2023-11-01] MEDS: HEPARIN (PORCINE) 1000 UNIT/ML 10 ML (CATH LAB USE ONLY) ONE (16:22)
[2023-11-01] MEDS: fentaNYL citrate PF 100 MCG/2 ML VIAL ONE (16:22)
[2023-11-01] MEDS: MIDAZOLAM HCL 1 MG/ML 2ML VIAL ONE (16:22)
[2023-11-01] MEDS: niCARdipine HCL INJ 2.5 MG/ML 10 ML AMP ONE (16:23)
[2023-11-01] MEDS: NITROGLYCERIN/D5W 100MCG/ML 20ML SYR ONE (16:23)
[2023-11-01] MEDS ORDERED: INSULIN ASPART PER UNIT CHARGE SC SCH (16:30)
--- NOTE | 2023-11-01 17:03 | Cardiac Catheterization ---
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 Cardiac Status Clinical evaluation leading to the procedure CAD Presenation: Non STEMI Anginal Classification: CCS IV Diagnostic Physicians Name: Jax Oneil MD Closure Device Recommendations: Medical Therapy and/or Counseling Cardiac Cath Procedure Full Procedure Date November 01, 2023 Pre-Procedure Diagnosis Pre-Procedure Diagnosis: Non STEMI AUC Score AUC Score: 8 Post-Procedure Diagnosis Post-Procedure Diagnosis: Severe CAD and Normal Intracardiac Pressures Procedure(s) Performed Procedure(s) Performed: Coronary Angiography and Left Heart Cath Finisher [employer] Jax Oneil MD General Clerk(s) Showers Estimated Blood Loss Estimated Blood Loss: 10 Medication(s) Medication(s): Fentanyl, Heparin, Lidocaine 1%, Nitroglycerin and Versed Summary of Findings Indication: High risk NSTEMI, cardiomyopathy Access: 6 Fr right radial artery Catheters: Foster, diagnostic JL 3.5 Findings: LM -normal caliber, luminal irregularities LAD -medium caliber, 50% heavily calcified lateproximal segment at takeoff of D1, 98% focal earlymid stenosis with questionable bridging collateral, 80% mid stenosis. Distal vessel without significant disease and wraps around apex. Medium D1 without disease. Small D2 with 99% ostial stenosis and BRANDEN I flow Circumflex -medium caliber, 80% ostial stenosis involving takeoff of medium high OM1. 40% proximal, 40 to 50% latemid. Medium PLB without significant disease. Distal circumflex provides collaterals to right PLB RCA -dominant, small caliber with 100% chronic mid total occlusion. Latemid and distal vessel fills via bridging collaterals. Competitive flow in PDA. LVEDP -3 Arterial Closure: TR band Summary: 1. Severe multivessel coronary artery disease -50% heavily calcified lateproximal, 98% earlymid, 80% mid LAD 80% ostial circumflex at takeoff of high OM1 100% mid small RCA chronic total occlusion with bridging right to right and [id number] collaterals 2. Normal intracardiac filling pressure Recommendations: Referral to tertiary center for consideration of CABG versus high risk PCI Hemodynamics Rest Ao:: 109/46/72 Final Ao: 148/59/90 LV: 157/3 Recommendations Recommendations: Medical Therapy and/or Counseling Specimens Specimens: None Radiation Exposure (mGy) 315 Contrast (mls) 60 Anesthesia Moderate [id number] Procedural Complication(s) None Disposition PCU I attest to the content of the Intraoperative Record and any orders documented therein. Any exceptions are noted below. [facility] Card Cath Procedure Codes Cardiac Catheterization Procedure 1: Cardiovascular Cath Procedures: 37215 Coronaries and LHC (+/-LV) Moderate Sedation Procedure 1: Sedation/Anesthesia: 89814 Mod Sedation by the same physician;Init15 Min Child Age 5 & Up PG Care Time/CCT Total # of Minutes Spent Total Time Spent with Patient: Total time spent is greater than 50% in coordination of care (as documented) at patient's floor/unit and/or counseling patient:
[2023-11-01] MEDS: INSULIN ASPART PER UNIT CHARGE SC SCH (17:15)
[2023-11-01] MEDS: SODIUM CHLORIDE 0.9% 1,000 ML IV SCH (17:36)
[2023-11-01 18:47] LABS: ANTI-Xa, UFH(UnfractionatedHep < 0.10 IU/ml (0.3-0.7)
--- NOTE | 2023-11-01 19:04 | Communication Note ---
Date of Service: November 01, 2023 Cardiac catheterization films reviewed independently, and reviewed and discussed with Dr. Oneil of interventional cardiology. Patient with multivessel coronary heart disease. Recommended transfer to tertiary center, [facility], for consideration of CABG versus high risk PCI. I discussed the cardiac catheterization results and recommendations with the patient and her family and they are agreeable. Case reviewed with Dr. Lambert of cardiology at [facility] who accepts the patient in transfer. Paperwork completed. Updated Dr. Castro.
--- NOTE | 2023-11-01 19:11 | Discharge Summary ---
Discharge Summary Date of Service November 01, 2023 Notes For Next Care Provider Interventional Cardiology recommending transfer to tertiary care hospital for CABG vs. high risk PCI. Medication Changes From Visit See current inpatient medication list included Admission HPI Per Admitting Provider This is an 83-year-old female with PMH of HTN, DM II, CKD III, HLD and other medical problems listed below who presents with generalized weakness and unintentional weight loss over the past month. at bedside states that patient has lost approximately 25 pounds over the past month and is just generally not hungry. Patient is a poor historian so majority of history was obtained by family at bedside. Was seen by Dr. Franklin's PA-C 2 weeks ago and blo od pressure had been elevated, so losartan dose was increased to 100 mg. Took for the first time this past Sunday before going to latter day. States she developed right-sided chest pain when walking out of the latter day that was nonradiating and resolved within the hour when she was able to rest at home. Chest pain has not recurred since then. Over the past few days, has noted her systolic blood pressure to be lower in the 1 teens, and has been holding blood pressure medications. This morning, patient is unclear whether or not she took her meds but her systolic blood pressure was in the 80s and brought her in for further evaluation. Over the past 2 weeks in particular, patient has felt generally weak with decreased appetite. Had a fall earlier today ambulating back from the restroom but denies losing consciousness or head trauma, landed on her backside. Denies any personal known history of CAD or cardiac catheterization. Thinks it has been years since she had an EKG. Does not follow with a in tube conversion technician. Remembers being told years ago that she has " aneurysms" but is not sure where they are located and we cannot view her outside records at this time. Patient is a non-smoker. No family history of heart disease. Denies any fever, chills, lightness, visual changes, chest pain, palpitations, shortness of breath, nausea, vomiting, abdominal pain, dysuria, diarrhea or constipation. Admission Exam Per Admitting Provider General Appearance: WD/WN, vitals as above, NAD, sitting up in bed Head: normocephalic, atraumatic Eyes: normal inspection, PERRL, conjunctivae normal, anicteric sclerae ENT: external ear and nose normal, oropharynx normal Neck: normal visual inspection, trachea midline, no thyromegaly Respiratory: normal respiratory effort, lungs clear to auscultation, no wheeze, rales, rhonchi. No accessory muscle use Cardiovascular: regular rate, rhythm, no murmur, normal peripheral pulses, no BLE edema. Vessels: no JVD Chest: normal inspection of chest Abdomen/GI: normal bowel sounds, soft, nontender, no hepatosplenomegaly Extremities/Musculoskeletal: no cyanosis or clubbing, extremities motor strength 5/5 Neurologic: PERRL, EOMI, accommodation nl, no face palsy, no dysarthria, CN's II-XI intact bilaterally and moves all extremities Psychiatric: A+Ox3, euthymic affect Skin: no rashes, normal color, warm/dry Principal Dx & Hospital Course #1 = Principal Diagnosis (1) LBBB (left bundle branch block): (2) NSTEMI (non-ST elevated myocardial infarction): (3) Generalized weakness: (4) HTN (hypertension): (5) DM (diabetes mellitus), type 2: (6) Chronic renal failure, stage 3 (moderate): (7) HLD (hyperlipidemia): Plan This is an 83-year-old female with PMH of HTN, DM II, CKD III, HLD and other medical problems listed below who presents with generalized weakness and unintentional weight loss over the past month and was found to have NSTEMI. Pt follows with [facility] as an outpatient and medical records were not easily available. LBBB NSTEMI Presenting with hypotension and generalized weakness x 1 mo, had R sided chest pain with walking on Sunday, has not recurred No known h/o CAD EKG reviewed - NSS, LAD, LBBB (new since 2016) HS troponin 7,459 -> 10,486 Started on IV heparin Discussed with Dr. Diggs who ordered stat echo Echo with EF 30-35%, LVH, abnormal septal motion with noted hypokinesis of LV Pt underwent cardiac catheterization with rib bender Dr Oneil -Findings were as follows: "Severe multivessel coronary artery disease. 50% heavily calcified lateproximal, 98% earlymid, 80% mid LAD, 80% ostial circumflex at takeoff of high OM1, 100% mid small RCA chronic total occlusion with bridging right to right and [id number] collaterals" Interventional Cardiology recommending transfer to tertiary care hospital for CABG vs. high risk PCI. Pt transferred to [facility] [place] on 11/01/2023. Acute uncomplicated UTI Endorses generalized weakness and decreased appetite but no urinary symptoms UA grossly abnormal, urine Cx pending Started on Rocephin, noted allergy to PCN (reaction - rash) Follow Culture and narrow antibiotics as needed. HTN Hypertensive on arrival Per , has been hypotensive at home and held home meds Continue home losartan, amlodipine and metoprolol at this time. DM II Known diagnosis Holding home agents SSI while in-patient BSG AC HS AM [id number] Acute on Chronic Kidney Disease Cr 1.72 (baseline unknown; will request outside records). Monitor daily BMP Will hold fluids at this time given echo results, consider very limited gentle hydration HLD Continue statin H/o abdominal aortic aneurysm Apparent history of abdominal aortic aneurysm which has been followed by her fire manager Consider abd/pelvis CT for further monitoring after cardiac cath contrast given Consider further outpatient monitoring as well Discharge Exam General: Alert, orientedx1. No acute distress Psych: Appropriate mood and affect Neuro: weakness noted with difficulty moving while in bed HEENT: NC/AT Chest: Nontender to palpation. CV: RRR Resp: Breath sounds clear bilaterally, no increased effort of breathing. Abdomen: Soft, diffusely tender Extremities: No edema in lower extremities bilaterally. Updated Medication List Medication Instructions Recorded Confirmed Type amlodipine 10 mg tablet 10 mg PO DAILY 11/01/23 11/01/23 History aspirin 81 mg tablet,delayed 81 mg PO QAM #30 tabs 11/01/23 Rx release atorvastatin 20 mg tablet 40 mg PO DAILY 11/01/23 11/01/23 History atorvastatin 40 mg tablet 80 mg (2 x 40 mg) PO QAM #30 tabs 11/01/23 Rx calcitriol 0.25 mcg capsule 0.25 mcg PO Q OTHER DAY 11/01/23 11/01/23 History calcium carbonate 600 mg calcium 600 mg PO DAILY 11/01/23 11/01/23 History (1,500 mg) tablet (Calcium) cholecalciferol (vitamin D3) 50 50 mcg PO DAILY 11/01/23 11/01/23 History mcg (2,000 unit) tablet (Vitamin D3) docusate sodium 100 mg capsule 100 mg PO DAILY 11/01/23 11/01/23 History (Colace) glipizide 10 mg tablet, extended 10 mg PO DAILY 11/01/23 11/01/23 History release 24 hr hydrochlorothiazide 12.5 mg capsule 12.5 mg PO DAILY 11/01/23 11/01/23 History levothyroxine 50 mcg tablet 50 mcg PO DAILY 11/01/23 11/01/23 History (Euthyrox) losartan 100 mg tablet 100 mg PO DAILY 11/01/23 11/01/23 History metoprolol succinate 25 mg 12.5 mg (1/2 x 25 mg) PO QAM #30 11/01/23 Rx tablet,extended release 24 hr tabs potassium chloride 20 mEq 20 meq PO DAILY 11/01/23 11/01/23 History tablet,extended release Additional Medication Comments Current Inpatient Medications Aspirin (Aspirin 81 Mg Ectab) 81 mg PO QAM [facility] Stop: 12/02/23 08:59 Atorvastatin Calcium (Atorvastatin 40 Mg Tab) 80 mg PO QAM [facility] Stop: 12/02/23 08:59 Calcitriol (Calcitriol 0.25 Mcg Capsule) 0.25 mcg PO Q2D@0900 [facility] Stop: 12/02/23 08:59 Calcium Carbonate (Calcium Carbonate 1250mg Tab) 1,250 mg PO DAILY [facility] Stop: 12/02/23 08:59 Dextrose (Dextrose 50% 50 Ml Syringe) 25 - 50 ml IV UD PRN; Protocol PRN Reason: Hypoglycemia Protocol Stop: 12/01/23 15:02 Docusate Sodium (Docusate Sodium 100 Mg Cap) 100 mg PO DAILY [facility] Stop: 12/03/23 08:59 Glucagon (Glucagon For Inj 1 Mg Vial) 1 mg SQ UD PRN; Protocol PRN Reason: Hypoglycemia Protocol Stop: 12/01/23 15:02 Glucose (Glucose 10 Tab/Tube) 4 - 8 tab PO UD PRN; Protocol PRN Reason: Hypoglycemia Treatment Stop: 12/01/23 15:02 Glucose (Glucose 40% Gel 15 Gm Tube) 15 - 30 gm PO UD PRN; Protocol PRN Reason: Hypoglycemia Protocol Stop: 12/01/23 15:02 Heparin Sodium/Dextrose (Heparin Sodium/Dextrose) 25,000 units in 500 mls @ 19 mls/hr IV .Q24H [facility]ID; Protocol Stop: 12/01/23 11:44 Last Titration: 11/01/23 19:01 Dose: 950 units/hr, 19 mls/hr Ceftriaxone Sodium 2,000 mg/ (Dextrose) 50 mls @ 100 mls/hr IV Q24H [facility]; Protocol Stop: 11/07/23 11:59 Sodium Chloride (Nss) 1,000 mls @ 100 mls/hr IV .Q10H [facility] Stop: 11/01/23 22:14 Last Admin: 11/01/23 17:36 Dose: 100 mls/hr Insulin Aspart (Insulin Aspart Per Unit Charge) 0 units SC Q4 [facility] Stop: 12/01/23 15:59 Last Admin: 11/01/23 17:15 Dose: Not Given Insulin Glargine (Lantus Per Unit Charge) 0 units SC ONE ONE; Protocol Stop: 11/01/23 21:01 Levothyroxine Sodium (Levothyroxine Sodium 50 Mcg Tablet) 50 mcg PO DAILYBB [facility] Stop: 12/02/23 06:29 Metoprolol Succinate (Metoprolol Succ 25mg Ext Rel Tab) 12.5 mg PO QAM [facility] Stop: 12/02/23 08:59 Miscellaneous (Carbohydrates For Hypoglycemia ) 15 - 30 gm PO UD PRN PRN Reason: Hypoglycemia Protocol Stop: 12/01/23 15:02 Miscellaneous Information (Pharmacy Glycemic Mgmt Consult) 1 each N/A UD PRN PRN Reason: Consult Stop: 12/01/23 15:02 Ondansetron HCl (Ondansetron Inj 2 Mg/Ml 2 Ml Vial) 4 mg IV Q6H PRN PRN Reason: Nausea Stop: 12/01/23 14:33 Polyethylene Glycol (Polyethylene (Miralax) 17 Gm Pack) 17 gm PO DAILY PRN PRN Reason: Constipation Stop: 12/01/23 14:33 Potassium Chloride (Potassium Chloride Crtab 20 Meq Tabcr) 20 meq PO DAILY [facility] Stop: 12/02/23 08:59 Vitamin D (Cholecalciferol 25 Mcg (1000 Units) Tab) 50 mcg PO DAILY [facility] Stop: 12/02/23 08:59 Hospital Stay Data Consultations 11/01/23 11:38 ED Decision to Admit Stat 11/01/23 14:34 Consult Cardiology Routine 11/01/23 19:00 Burn CD for patient Routine Procedures Performed Operation Date: 11/01/23 15:30 Actual Procedures p Cath, Left with Cors and Vent - Jax Oneil MD Diagnostic Imagining Performed 11/01/23 10:31 CT head/brain wo con Stat 11/01/23 15:19 CL Cath Imgs for PACS use only Stat Chest X-Ray 11/01/23 10:31 XR chest 1V portable HISTORY: weakness COMPARISON: Chest 10/02/2015. FINDINGS: No pneumothorax. No pleural effusions. The cardiac silhouette and mainstem normal in size. Calcifications again noted within the thoracic aorta. The lungs are clear. No evidence for pulmonary edema. No acute fractures identified. IMPRESSION: No acute process. ACT 112: Negative or not required by law. Electronically signed by: Juan M Gillis M.D. 11/01/2023 10:[address] 11/01/23 10:31 CT head/brain wo con CLINICAL HISTORY: ams Technique: Contiguous axial CT images of the head were acquired from the base of the skull to the vertex without intravenous contrast administration. Images were viewed in brain, subdural and bone windows. Automated dose lowering techniques and/or adjustment according to patient size were utilized for this exam. Comparison: None available at the time of this dictation. Findings: Areas of decreased attenuation are present in the periventricular and subcortical white matter bilaterally consistent with small vessel ischemic disease. Generalized cerebral atrophy with commensurate enlargement of the ventricles, sulci, and cisterns is also present. There is no acute intracranial hemorrhage or evidence of acute territorial infarction. No shift of the midline structures, mass effect, or extra-axial abnormalities are shown. Atherosclerotic calcifications are present in the intracranial segments of the internal carotid arteries. Imaged portions of the paranasal sinuses and mastoid air cells are clear. The orbits appear normal. There are no acute fractures of the calvaria or scalp swelling. Impression: No acute intracranial hemorrhage, no evidence of acute territorial infarction or other acute intracranial disease process. ACT 112: Negative or not required by law. Electronically signed by: Bebo Mccann M.D. 11/01/2023 11:16 AM Pending Results Patient Have Any Pending Studies at Discharge: No Discharge Instructions Given to Patient (Per Discharging Provider) Per Dr. Сергей Diggs signed at 19:04PM: "Cardiac catheterization films reviewed independently, and reviewed and discussed with Dr. Oneil of interventional cardiology. Patient with multivessel coronary heart disease. Recommended transfer to tertiary center, [facility] [place], for consideration of CABG versus high risk PCI. I discussed the cardiac catheterization results and recommendations with the patient and her family and they are agreeable. Case reviewed with Dr. Lambert of cardiology at [facility] [place] who accepts the patient in transfer." Total Time Total Time Spent Total Time Spent (In Minutes): > 30 minutes
[2023-11-01] MEDS: LANTUS PER UNIT CHARGE SC ONE (19:48)
[2023-11-02] MEDS ORDERED: LEVOTHYROXINE SODIUM 50 MCG TABLET PO SCH (06:30)
[2023-11-02] MEDS ORDERED: CALCIUM CARBONATE 1250MG TAB PO SCH (09:00)
[2023-11-02] MEDS ORDERED: CHOLECALCIFEROL 25 MCG (1000 UNITS) TAB PO SCH (09:00)
[2023-11-02] MEDS ORDERED: POTASSIUM CHLORIDE CRTAB 20 MEQ TABCR PO SCH (09:00)
[2023-11-02] MEDS ORDERED: CALCITRIOL 0.25 MCG CAPSULE PO SCH (09:00)
[2023-11-02] MEDS ORDERED: ASPIRIN 81 MG ECTAB PO SCH (09:00)
[2023-11-02] MEDS ORDERED: METOPROLOL SUCC 25MG EXT REL TAB PO SCH (09:00)
[2023-11-02] MEDS ORDERED: ATORVASTATIN 40 MG TAB PO SCH (09:00)
[2023-11-02] MEDS ORDERED: cefTRIAXone SODIUM 2,000 MG in DEXTROSE 5 % MINI-B 50 ML IV SCH (12:00)
[2023-11-03] MEDS ORDERED: DOCUSATE SODIUM 100 MG CAP PO SCH (09:00)
--- NOTE | 2023-11-06 08:33 | Coding Query ---
To promote full compliance with coding requirements relating to patient care, provider participation is requested in all cases of seed cone picker uncertainty. Please assist us with the question(s) below: Coding Question(s): The diagnosis(es) below was documented in the H&P, then subsequently fell off all further documentation. Please indicate if it is still a possible diagnosis or ruled out. Physician's Response(s): SEPSIS ( ) Diagnosed and POA ( ) Diagnosed and not POA ( ) Ruled out ( x ) Other (please specify) Pt was transferred to another facility before diagnosis could be established *Possible sepsis METABOLIC ENCEPHALOPATHY ( x ) Diagnosed and POA ( ) Diagnosed and not POA ( ) Ruled out ( ) Other (please specify) MTDD
--- NOTE | 2023-11-06 08:34 | Coding Query ---
CODING QUERY To promote full compliance with coding requirements relating to patient care, provider participation is requested in all cases of mobile home laborer uncertainty. Please assist us with the question(s) below: Please clarify the meaning of SCOTTY documented on the H&P. SCOTTY is not a valid abbreviation. Thank you. ( ) Acute Kidney Injury ( ) Acute Kidney Insufficiency ( ) SCOTTY is Ruled-Out (x ) Other (Specify): *Possible Acute kidney Injury (baseline Cr unknown) Principal Diagnosis: "that condition established after study, to be chiefly responsible for occasioning the admission of the patient to the hospital for care." Co-Existing Principal Diagnosis: "when two or more diagnoses equally meet the criteria for principal diagnosis as determined by the circumstances of admission, diagnostic work up, and/or therapy provided, and the Alphabetic Index, Tabular List, or another coding guideline does not provide sequencing direction, any one of the diagnoses may be sequenced first." "When the physician has documented what appears to be a current diagnosis in the body of the record, but has not included the diagnosis in the final diagnostic statement, the physician should be asked whether the diagnosis should be added." (Source Coding [facility] 2 QTR90. p3-4) ANDERSON
== END 2023-11-01 22:08 | disposition short-term general hospital (02) | DRG 280 ==
LOC: ED 09:58 → 4W 12:30